=== PATIENT | female | born 1975 | race Caucasian/White ===

== ENCOUNTER → 2016-08-17 | Outpatient (CLI) | payer BC ==
[2016-08-17 17:17] LABS: FREE T4 (FREE THYROXINE) 1.31 ng/dL (0.93-1.71)
== END ==
LOC: MOB LAB 15:33
PROVIDERS: ATTEND Nurse Practitioner Family
DX: E03.9 Hypothyroidism, unspecified (principal)
CPT/HCPCS: 84439; 84443